=== PATIENT | female | born 1940 | race Caucasian/White ===

== ENCOUNTER 2022-11-19 07:50 | Outpatient (CLI) | payer MEDICARE, BC, SELFPAY ==
--- NOTE | 2022-11-19 08:15 | CRLHL7_ITS ---
For Patients: As a result of the Century Cures Act, medical imaging exams and procedure reports are released immediately into your electronic medical record. You may view this report before your referring provider. If you have questions, please contact your health care provider. Technique: Double-contrast esophagram performed after the uneventful administration of effervescent crystals and thick barium followed by thin barium. Fluoroscopy time 53 seconds. Indication: DYSPHAGIA / GERD Comparison: None. Findings: Severe spontaneous reflux to the proximal esophagus noted with associated diminished clearance of contrast from the esophagus. Numerous tertiary contractions are present throughout the mid and distal esophagus. A sliding hiatal hernia is visualized later in the examination. No ulcer or stricture. No obstruction to the flow of contrast. Impression: 2.5 cm sliding hiatal hernia with large volume spontaneous reflux and mid/distal reflux esophagitis along with decreased esophageal motility. Dictated by Owen Jackson MD @ 11/19/2022 10:21:57 AM (Electronically Signed)
== END 2022-11-19 07:51 | disposition home or self-care (01) ==
LOC: RAD 07:54
PROVIDERS: PCP Family Medicine; Visit Provider Family Medicine
DX: R13.10 Dysphagia, unspecified (principal); K44.9 Diaphragmatic hernia without obstruction or gangrene
CPT/HCPCS: 74221

== ENCOUNTER 2022-11-23 09:49 | Outpatient (CLI) | payer MEDICARE, BC, SELFPAY ==
--- NOTE | 2022-11-23 10:52 | W.ANESCHARGE ---
Anesthesia Charges Start Date/Time Anesthesia Start Date: 11/23/22 Anesthesia Start Time: 10:33 Stop Date/Time Anesthesia Stop Date: 11/23/22 Anesthesia Stop Time: 10:47 Summary Extremes of Age - Over 70 or under 1: [employer]
--- NOTE | 2022-11-23 11:05 | W.ANESCHARGE ---
Anesthesia Charges Start Date/Time Anesthesia Start Date: 11/23/22 Anesthesia Start Time: 10:33 Stop Date/Time Anesthesia Stop Date: 11/23/22 Anesthesia Stop Time: 10:47 Summary Extremes of Age - Over 70 or under 1: MDA
== END 2022-11-23 09:50 | disposition home or self-care (01) ==
LOC: OP CLINIC 09:49
PROVIDERS: PCP Family Medicine; Visit Provider Internal Medicine
DX: K21.9 Gastro-esophageal reflux disease without esophagitis (principal); K44.9 Diaphragmatic hernia without obstruction or gangrene
CPT/HCPCS: 00731; 00811; 43239; 88305; 99100; J2704

== ENCOUNTER 2023-02-23 07:30 | Outpatient (RCR) | payer MEDICARE, BC, SELFPAY | END 2023-06-23 23:59 | disposition home or self-care (01) | PROVIDERS: PCP Family Medicine; Visit Provider Nurse Practitioner | DX: M81.0 Age-related osteoporosis without current pathological fracture (principal); M62.81 Muscle weakness (generalized); R26.81 Unsteadiness on feet; Z91.81 History of falling; R29.898 Other symptoms and signs involving the musculoskeletal system; Z51.89 Encounter for other specified aftercare | CPT/HCPCS: 97110; 97161 ==